=== PATIENT | female | born 1980 | race Caucasian/White ===

== ENCOUNTER → 2023-10-28 15:40 | Outpatient (REF) | payer OTHER, SELFPAY | LOC: WDC 15:40 | PROVIDERS: ATTENDING PHYSICIAN Obstetrics & Gynecology Gynecology; FAMILY PHYSICIAN Physician Assistant Medical | DX: Z12.31 Encounter for screening mammogram for malignant neoplasm of breast (principal) | CPT/HCPCS: 77063; 77067 ==

== ENCOUNTER 2023-11-02 07:28 | Emergency (ER) | payer OTHER, SELFPAY ==
[2023-11-02 07:29] VITALS: BP 127/82
[2023-11-02 08:05] VITALS: BMI 27.9
--- NOTE | 2023-11-02 08:32 | ED.GENMED ---
History of Present Illness
General
Chief Complaint: Abdominal Pain
Source: patient
Exam Limitations: none
Time Seen by Provider: 11/02/23 08:17
Nursing documentation reviewed up to this point in time: agreed with
Travel History
Have you had any contact with someone who has COVID-19?: No
Do you have any symptoms of coronavirus? Fever > 100 degrees, chills, cough, shortness of breath, sore throat, loss of taste or smell, muscle aches, or headache?: No
History of Present Illness
History of Present Illness:
43 yo female with hx ankylosing spondylitis, ovarian cyst, presents with LLQ abdominal pain. Has had pain intermittently 'shooting' across her lower back past week. Pain started wrapping around to left abdomen and now is not present in back but only
LLQ. Now 4/10 but gets to 9/10 with sweats at times.
Denies fever or chills. Denies shortness of breath or chest pain. No recollection of overuse or injury.
Patient states she intermittently gets 'bouts of inflammation and tightness,' generalized pains, 2 weeks ago she finished 7 days of a steroid taper for general back pain.
Past History
Past History
ED Past Medical History: Asthma and Other (Recurrent UTIs, costochondritis, Headaches,); Negative HTN, Hypercholesterolemia or NIDDM
ED Past Surgical History: None ( pericarditis); Negative Orthopedic
Social History
Tobacco: No 2nd hand smoke (as child)
Alcohol: None
Drug: None
Personal:
Living: with family
Employment: Employed
Family History
Family History: Hypertension
Review of Systems
Review of Systems
Allergies reviewed?: Yes
All Other Systems: ROS reviewed and negative except as documented in HPI and ROS
Constitutional: Denies fever or chills
Respiratory: Denies trouble breathing
Cardiac: Denies chest pain
ABD/GI: Reports abdominal pain; Denies nausea, vomiting, diarrhea, constipated, bloody stools, black stools or anorexia
: Reports no symptoms
Musculoskeletal: Reports back pain
Skin: Reports no symptoms
Neurological: Reports no symptoms
Phy Exam
Physical Exam
Physical Exam:
GENERAL: No acute distress. A&Ox3.
CONSTITUTIONAL: Afebrile.
EYES: Clear, conjunctivae normal
ENMT: moist mucus membranes, Pharynx nl
RESPIRATORY: Regular respirations, nonlabored, lungs clear.
CARDIOVASCULAR: Regular rate and rhythm, no murmurs, no rubs.
GI: Soft, mild tenderness mid to left abdomen , normal BS, no guarding. Flanks nontender to percussion no spinal bony tenderness
MUSCULOSKELETAL:. Patient out of bed and full range of motion of spine comfortably, no tenderness to palpation para thoracic repair lumbar soft tissues. Moves with ease. Well perfused.
SKIN: Warm, dry, pink
PSYCH: Normal mood and affect. Well kept, interactive and appropriate
NEUROLOGIC: Awake, alert and oriented. No focal neurological deficits
Course
Orders/Labs/Results
Orders:
Orders
11/02/23 08:31
0.9% Sodium Chloride 1000 ml [Nss] 1,000 ml IV BOLUS
Test Result ONCE
11/02/23 08:52
Complete Blood Count/With Diff Urgent
Comprehensive Metabolic Panel Urgent
HCG, Serum Qualitative Screen Urgent
Lipase Urgent
Urinalysis Reflex To Culture Urgent
Date Specimen was Collected: 11/02/23
Time Specimen was Collected: 08:50
11/02/23 10:49
CT Abd/Pel (IV only)-DH only Urgent
Comment:
Reason For Exam: LLQ pain
Abnormal Lab Results
11/02/23
08:52
MCH 34.9 H pg
(27.0-31.0)
RDW 11.2 L %
(11.5-14.5)
Sodium 134 L mmol/L
(135-145)
Creatinine 0.5 L mg/dL
(0.6-1.0)
ALT 38 H U/L
(0-35)
Total Protein 6.2 L g/dl
(6.3-8.2)
11/02/23 08:52
11/02/23 08:52
Vital Signs
Initial and Last Documented VS:
Initial Vital Signs
Temp Pulse Resp BP Pulse Ox
98 F 73 16 127/82 98
11/02/23 07:29 11/02/23 07:29 11/02/23 07:29 11/02/23 07:29 11/02/23 07:29
Last Documented Vital Signs
Temp Pulse Resp BP Pulse Ox
97.9 F 62 18 102/64 98
11/02/23 11:19 11/02/23 11:19 11/02/23 11:19 11/02/23 11:19 11/02/23 11:19
MDM/Problems Addressed
Differential Diagnosis Includes:
ovarian cyst, kidney stone, diverticulitis, exacerbation of chronic intermittent back pain
MDM/Problems Addressed:
43 yo female with hx ankylosing spondylitis, ovarian cyst, presents with LLQ abdominal pain. Has had pain intermittently 'shooting' across her lower back past week. Pain started wrapping around to left abdomen and now is not present in back but only
LLQ. Now 4/10 but gets to 9/10 with sweats at times.
Denies fever or chills. Denies shortness of breath or chest pain. No recollection of overuse or injury.
Patient states she intermittently gets 'bouts of inflammation and tightness,' generalized pains, 2 weeks ago she finished 7 days of a steroid taper for general back pain.
11:30 AM
CBC normal
CMP normal hCG negative
Lipase normal
UA negative
Pt kindly declined when pain med offered
12:17 PM
CAT scan abdomen pelvis radiology report reviewed:
IMPRESSION:
No dilated bowel loops. No apparent bowel wall thickening. Mild colonic fecal burden. Scattered fluid and a few small/short air-fluid levels associated with the small bowel, in keeping with history of diarrhea.
Normal appendix.
Nonspecific trace free fluid in the pelvis, likely physiologic. 2 cm right ovarian follicle.
Nothing in today's workup to explain her abdominal pain.
Pt satisfied with work up
Ambulated out with normal gait upon discharge
*Critical Care Note
Total Time (30-74mins, 75-104mins- exclusive of procedures): Not Applicable
ED Attending Note
-
Portions of this chart may have been created with voice recognition software.� Occasional wrong word or��sound alike� substitutions may have occurred due to the inherent limitations of voice recognition software.
Discharge Plan
Departure
Patient Disposition: Home (Routine Discharge)
Date of Disposition: 11/02/23
Time of Disposition: 12:18
Patient with high blood pressure during this ER visit?: No
Condition: Good
Discharge Problem:
Abdominal pain, Low back pain
Instructions: Low Back Pain (DC), Abdominal Pain
Prescriptions:
No Action
azelastine 1 SPRAY aerosol,spray
1 spray intranasal BID
fluticasone propionate 1 SPRAY spray,suspension
1 spray intranasal DAILY
bupropion HCl 150 MG tablet extended release 24 hr
75 mg PO DAILY
loratadine 10 MG tablet
10 mg PO DAILY
sucralfate 1 GRAM tablet
1 g PO ACHS Qty: 20 0RF
Referrals:
Courtney Campbell PA [Family Provider] -
Activity Restrictions/Additional Instructions:
As we discussed, nothing in your workup here today shows anything worrisome, specifically no indication of the cause of your back or abdominal pain.
Ibuprofen or Tylenol as needed for pain
Follow-up with your family doctor in one weel if your symptoms are not much better.
Interventions
Interventions:
*Risk Screen - Suicide Last Done: 11/02/23 07:29
*General Assessment Last Done: 11/02/23 07:29
*Neglect/Abuse Screening Last Done: 11/02/23 07:29
ED- Fall Risk Assessment Last Done: 11/02/23 08:05
*ED COVID-19 Vaccine History Last Done: 11/02/23 08:05
*Nursing Disposition Last Done: 11/02/23 12:28
NE-Pwuiyd-Ifnshtbolf Assessment Last Done: 11/02/23 08:51
Discharge Date and Time
Discharge Date/Time: 11/02/23 12:28
Print Language: TURKMEN
[2023-11-02] MEDS: NSS 1000 IV (08:59)
[2023-11-02 09:17] LABS: Urine Albumin Negative (Neg - Trace); Urine Bilirubin Negative (Negative); Urine Character Clear (Clear); Urine Color Yellow; Urine Glucose Negative (Negative); Urine Ketone Negative (Negative); Urine Leukocyte Negative (Negative); Urine Nitrite Negative (Negative); Urine Occult Blood Negative (Negative); Urine Specific Gravity 1.015 (<1.030); Urine Urobilinogen Negative (Neg - 1+)
[2023-11-02 09:23] LABS: % Basophils 0.4 % (0-2); % Eosinophils 1.8 % (0-6); % Immature Granulocytes 0.4 % (0-0.5); % Lymphocytes 24.6 % (20.5-51.1); % Monocytes 7.2 % (1.7-9.3); % Neutrophils 65.6 % (42.2-75.2); Absolute Eosinophils 0.1 10^3/uL (0-0.7); Absolute Lymphocytes 1.3 10^3/uL (1.2-3.4); Absolute Monocytes 0.4 10^3/uL (0.1-0.6); Absolute Neutrophils 3.6 10^3/uL (1.4-6.5); Hematocrit 42.8 % (37.0-47.0); Hemoglobin 15.3 g/dL (12.0-16.0); Mean Corp Hgb Conc. 35.7 g/dL (33.0-37.0); Mean Corpuscular Hgb 34.9 pg (27.0-31.0); Mean Corpuscular Volume 97.5 fL (81.0-99.0); Mean Platelet Volume 9.1 fL (7.4-10.4); Nucleated Red Blood Cells % 0 %; Platelet Count 255 10^3/uL (130-400); Red Blood Cell Count 4.39 10^6/uL (4.20-5.40); Red Cell Dist. Width 11.2 % (11.5-14.5); White Blood Cell Count 5.4 10^3/uL (4.8-10.8)
[2023-11-02 09:28] LABS: ALT (SGPT) 38 U/L (0-35); AST (SGOT) 31 U/L (14-36); Albumin 3.8 g/dl (3.5-5.0); Alkaline Phosphatase 97 U/L (38-126); Blood Urea Nitrogen 14 mg/dl (7-17); Calcium 8.6 mg/dl (8.4-10.2); Carbon Dioxide 24 mmol/L (22-30); Chloride 107 mmol/L (98-107); Estimated Creatinine Clearance 121 ml/min; Glucose 93 mg/dl (70-99); Lipase 75 U/L (23-300); Potassium 3.8 mmol/L (3.5-5.1); Sodium 134 mmol/L (135-145); Total Bilirubin 0.8 mg/dl (0.2-1.3); Total Protein 6.2 g/dl (6.3-8.2); eGFR > 60.00
[2023-11-02 09:30] LABS: HCG, Serum Qualitative Screen Negative
[2023-11-02 11:19] VITALS: BP 102/64
== END 2023-11-02 12:28 | disposition home or self-care (01) ==
LOC: EMR 07:28
PROVIDERS: Registered Nurse; EMERGENCY PHYSICIAN Emergency Medicine; FAMILY PHYSICIAN Physician Assistant Medical
DX: R10.32 Left lower quadrant pain (principal); M54.50 Low back pain, unspecified; J45.909 Unspecified asthma, uncomplicated; M45.9 Ankylosing spondylitis of unspecified sites in spine; Z82.49 Family history of ischemic heart disease and other diseases of the circulatory system; Z87.440 Personal history of urinary (tract) infections
CPT/HCPCS: 99284; 74177; 80053; 81003; 83690; 84703; 85025; Q9967

== ENCOUNTER → 2023-12-17 07:48 | Outpatient (REF) | payer OTHER, SELFPAY | LOC: WDC 07:48 | PROVIDERS: ATTENDING PHYSICIAN Obstetrics & Gynecology Gynecology; FAMILY PHYSICIAN Physician Assistant Medical | DX: R92.8 Other abnormal and inconclusive findings on diagnostic imaging of breast (principal) | CPT/HCPCS: 76642 ==

== ENCOUNTER → 2024-03-10 11:33 | Outpatient (REF) | payer OTHER, SELFPAY | LOC: RAD 11:33 | PROVIDERS: ATTENDING PHYSICIAN Nurse Practitioner Adult Health; FAMILY PHYSICIAN Physician Assistant Medical | DX: R10.2 Pelvic and perineal pain (principal) | CPT/HCPCS: 76830; 76856 ==

== ENCOUNTER → 2024-03-16 14:04 | Outpatient (REF) | payer OTHER, SELFPAY | LOC: WDC 14:04 | PROVIDERS: ATTENDING PHYSICIAN Obstetrics & Gynecology Gynecology; FAMILY PHYSICIAN Physician Assistant Medical | DX: R92.8 Other abnormal and inconclusive findings on diagnostic imaging of breast (principal) | CPT/HCPCS: 76642 ==

== ENCOUNTER → 2024-07-30 11:31 | Outpatient (REF) | payer OTHER, SELFPAY | LOC: RAD 11:31 | PROVIDERS: ATTENDING PHYSICIAN Otolaryngology | DX: J32.0 Chronic maxillary sinusitis (principal) | CPT/HCPCS: 70210 ==

== ENCOUNTER 2024-07-31 13:40 | Emergency (ER) | payer OTHER, SELFPAY ==
[2024-07-31 13:47] VITALS: BP 108/75
[2024-07-31 14:19] LABS: % Basophils 0.3 % (0-2); % Eosinophils 0.5 % (0-6); % Immature Granulocytes 0.3 % (0-0.5); % Lymphocytes 21.2 % (20.5-51.1); % Neutrophils 72.7 % (42.2-75.2); Absolute Lymphocytes 1.3 10^3/uL (1.2-3.4); Absolute Monocytes 0.3 10^3/uL (0.1-0.6); Absolute Neutrophils 4.5 10^3/uL (1.4-6.5); Hematocrit 40.9 % (37.0-47.0); Hemoglobin 15.3 g/dL (12.0-16.0); Mean Corp Hgb Conc. 37.4 g/dL (33.0-37.0); Mean Corpuscular Hgb 35.2 pg (27.0-31.0); Mean Platelet Volume 8.6 fL (7.4-10.4); Nucleated Red Blood Cells % 0 %; Platelet Count 375 10^3/uL (130-400); Red Blood Cell Count 4.35 10^6/uL (4.20-5.40); Red Cell Dist. Width 10.9 % (11.5-14.5); White Blood Cell Count 6.1 10^3/uL (4.8-10.8)
[2024-07-31 14:28] LABS: HCG, Serum Qualitative Screen Negative
[2024-07-31 14:37] LABS: ALT (SGPT) 19 U/L (0-35); AST (SGOT) 25 U/L (14-36); Albumin 4.4 g/dl (3.5-5.0); Alkaline Phosphatase 46 U/L (38-126); Blood Urea Nitrogen 13 mg/dl (7-17); Calcium 9.5 mg/dl (8.4-10.2); Carbon Dioxide 25 mmol/L (22-30); Chloride 103 mmol/L (98-107); Glucose 118 mg/dl (70-99); Potassium 4.2 mmol/L (3.5-5.1); Sodium 135 mmol/L (135-145); Total Protein 6.7 g/dl (6.3-8.2); eGFR > 60.00
--- NOTE | 2024-07-31 15:15 | ED.GENMED ---
History of Present Illness
General
Chief Complaint: Eye Problems
Source: patient
Exam Limitations: none
Time Seen by Provider: 07/31/24 15:13
Nursing documentation reviewed up to this point in time: agreed with
History of Present Illness
History of Present Illness:
44 yo female with chronic sinusitis, Saw ENT, states her sinuses are feeling a little better on day 8 of Augmentin. had sinus xray 07/30 at request of ENT for chronic maxillary sinusitis and results were as follows: IMPRESSION:
The paranasal sinuses are clear.
There is a 3 cm oval asymmetric density in the left orbit which, if clinically indicated, could be further evaluated with CT
Pt here now stating ENT Dr. Barlow called her today and recommended she come here for CT scan to r/o abscess L orbit
Did develop a little crusting and blurry vision in left eye 5 days ago and was put on Gentamicin drops which she used for 3 days with improvement
Past History
Past History
ED Past Medical History: Asthma and Other (Recurrent UTIs, costochondritis, Headaches,)
ED Past Surgical History: None ( pericarditis); Negative Orthopedic
Social History
Tobacco: No 2nd hand smoke (as child)
Alcohol: None
Drug: None
Personal:
Living: with family
Employment: Employed
Family History
Family History: Hypertension
Review of Systems
Review of Systems
Allergies reviewed?: Yes
All Other Systems: ROS reviewed and negative except as documented in HPI and ROS
Constitutional: Denies fever
EENT: Reports other (chronic sinusitis, sinus pressure); Denies sore throat or runny nose
Respiratory: Denies cough or trouble breathing
ABD/GI: Denies abdominal pain, nausea or vomiting
Musculoskeletal: Denies neck pain
Skin: Reports no symptoms
Neurological: Reports no symptoms
Phy Exam
Physical Exam
Physical Exam:
GENERAL: No acute distress. A&Ox3.
CONSTITUTIONAL: Afebrile.
EYES: clear, conjunctivae normal, EOMs intact, sharp optic disc bilaterally. Sharp vessel borders visual acuity noted.
ENMT: moist mucus membranes, Pharynx nl, TMs normal
RESPIRATORY: Regular respirations, nonlabored, lungs clear.
CARDIOVASCULAR: Regular rate and rhythm, no murmurs, no rubs.
GI: Soft, nontender
MUSCULOSKELETAL: Moves with ease. Well perfused.
SKIN: Warm, dry, pink
PSYCH: Normal mood and affect. Well kept, interactive and appropriate
NEUROLOGIC: Awake, alert and oriented. No focal neurological deficits
Eye Exam
Eye Exam: PERRL, EOMI, cornea clear, conjunctiva normal, disc sharp and globe normal
Able to obtain acuity?: Yes
Right 20/: 40
Left 20/: 50
Both 20/: 30
Refraction?: No
Course
Orders/Labs/Results
Orders:
Orders
07/31/24 13:54
Test Result ONCE
07/31/24 14:08
Complete Blood Count/With Diff Urgent
Comprehensive Metabolic Panel Urgent
HCG, Serum Qualitative Screen Urgent
07/31/24 15:14
CT Orbits With Iv Contrast Urgent
Comment:
Reason For Exam: xray showed asymmet density L orbit
07/31/24 15:24
Visual Acuity- Treatment ONCE
Abnormal Lab Results
07/31/24
14:08
MCH 35.2 H pg
(27.0-31.0)
MCHC 37.4 H g/dL
(33.0-37.0)
RDW 10.9 L %
(11.5-14.5)
Glucose 118 H mg/dl
(70-99)
07/31/24 14:08
07/31/24 14:08
Vital Signs
Initial and Last Documented VS:
Initial Vital Signs
Temp Pulse Resp BP Pulse Ox
97.9 F 87 18 108/75 99
07/31/24 13:47 07/31/24 13:47 07/31/24 13:47 07/31/24 13:47 07/31/24 13:47
Last Documented Vital Signs
Temp Pulse Resp BP Pulse Ox
98.1 F 76 16 110/68 100
07/31/24 16:37 07/31/24 16:37 07/31/24 16:37 07/31/24 16:37 07/31/24 16:37
MDM/Problems Addressed
MDM/Problems Addressed:
44 yo female with chronic sinusitis, Saw ENT, states her sinuses are feeling a little better on day 8 of Augmentin. had sinus xray 07/30 at request of ENT for chronic maxillary sinusitis and results were as follows: IMPRESSION:
The paranasal sinuses are clear.
There is a 3 cm oval asymmetric density in the left orbit which, if clinically indicated, could be further evaluated with CT
Pt here now stating ENT Dr. Barlow called her today and recommended she come here for CT scan to r/o abscess L orbit
Did develop a little crusting and blurry vision in left eye 5 days ago and was put on Gentamicin drops which she used for 3 days with improvement
Visual acuity noted.
CBC, CMP normal
5:[address] orbits radiology report read: IMPRESSION:
There is no evidence of intraorbital lesion or post septal infectious process..
Pt informed.
Stable for discharge
*Critical Care Note
Total Time (30-74mins, 75-104mins- exclusive of procedures): Not Applicable
ED Attending Note
-
Portions of this chart may have been created with voice recognition software.� Occasional wrong word or��sound alike� substitutions may have occurred due to the inherent limitations of voice recognition software.
Discharge Plan
Departure
Patient Disposition: Home (Routine Discharge)
Date of Disposition: 07/31/24
Time of Disposition: 17:29
Patient with high blood pressure during this ER visit?: No
Condition: Good
Discharge Problem:
Sinusitis
Instructions: Sinusitis in adults - ED discharge instructions
Prescriptions:
No Action
azelastine 1 SPRAY aerosol,spray
1 spray intranasal BID
fluticasone propionate 1 SPRAY spray,suspension
1 spray intranasal DAILY
bupropion HCl 150 MG tablet extended release 24 hr
75 mg PO DAILY
loratadine 10 MG tablet
10 mg PO DAILY
sucralfate 1 GRAM tablet
1 g PO ACHS Qty: 20 0RF
Referrals:
Courtney Campbell PA [Family Provider] -
Oma Barlow MD [Active] - As needed
Activity Restrictions/Additional Instructions:
As we discussed, your CAT scan shows nothing worrisome.
The shadow seen on the x-ray most likely was artifact
Continue your Augmentin as prescribed and follow-up with ENT as needed
Interventions
Interventions:
*Risk Screen - Suicide Last Done: 07/31/24 13:47
*General Assessment Last Done: 07/31/24 13:47
*Neglect/Abuse Screening Last Done: 07/31/24 13:47
*Nursing Disposition Last Done: 07/31/24 17:48
Discharge Date and Time
Discharge Date/Time: 07/31/24 17:50
Print Language: SETSWANA
[2024-07-31 16:37] VITALS: BP 110/68
== END 2024-07-31 17:50 | disposition home or self-care (01) ==
LOC: EMR 13:40
PROVIDERS: Emergency Medicine; EMERGENCY PHYSICIAN Emergency Medicine; FAMILY PHYSICIAN Physician Assistant Medical
DX: J01.90 Acute sinusitis, unspecified (principal); H53.8 Other visual disturbances; J45.909 Unspecified asthma, uncomplicated; Z87.440 Personal history of urinary (tract) infections
CPT/HCPCS: 99284; 70481; 80053; 84703; 85025; Q9967

== ENCOUNTER → 2024-11-02 14:10 | Outpatient (REF) | payer OTHER, SELFPAY | LOC: WDC 14:10 | PROVIDERS: ATTENDING PHYSICIAN Obstetrics & Gynecology Gynecology | DX: Z12.31 Encounter for screening mammogram for malignant neoplasm of breast (principal) | CPT/HCPCS: 77063; 77067 ==

== ENCOUNTER → 2024-11-23 10:42 | Outpatient (REF) | payer OTHER, SELFPAY | LOC: WDC 10:42 | PROVIDERS: ATTENDING PHYSICIAN Obstetrics & Gynecology Gynecology | DX: R92.8 Other abnormal and inconclusive findings on diagnostic imaging of breast (principal) | CPT/HCPCS: 76642 ==

== ENCOUNTER → 2025-02-04 08:10 | Outpatient (REF) | payer OTHER, SELFPAY | LOC: HWRAD 08:10 | PROVIDERS: ATTENDING PHYSICIAN Internal Medicine; FAMILY PHYSICIAN Physician Assistant Medical | DX: R53.82 Chronic fatigue, unspecified (principal); R16.2 Hepatomegaly with splenomegaly, not elsewhere classified | CPT/HCPCS: 76700 ==

== ENCOUNTER → 2025-03-01 16:46 | Outpatient (REF) | payer OTHER, SELFPAY | LOC: RAD 16:46 | PROVIDERS: ATTENDING PHYSICIAN Internal Medicine Hematology & Oncology; FAMILY PHYSICIAN Physician Assistant Medical | DX: D75.89 Other specified diseases of blood and blood-forming organs (principal) | CPT/HCPCS: 71250 ==

== ENCOUNTER 2025-03-18 19:26 | Emergency (ER) | payer OTHER, SELFPAY ==
[2025-03-18 19:29] VITALS: BP 121/81
[2025-03-18 19:40] LABS: Hematocrit 40.4 % (37.0-47.0); Hemoglobin 14.9 g/dL (12.0-16.0); Mean Corp Hgb Conc. 36.9 g/dL (33.0-37.0); Mean Corpuscular Volume 96.4 fL (81.0-99.0); Nucleated Red Blood Cells % 0 %; Platelet Count 344 10^3/uL (130-400); Red Cell Dist. Width 10.9 % (11.5-14.5)
[2025-03-18 20:02] LABS: ALT (SGPT) 17 U/L (0-35); AST (SGOT) 21 U/L (14-36); Albumin 4.7 g/dl (3.5-5.0); Alkaline Phosphatase 54 U/L (38-126); Blood Urea Nitrogen 19 mg/dl (7-17); Calcium 9.4 mg/dl (8.4-10.2); Carbon Dioxide 26 mmol/L (22-30); Chloride 104 mmol/L (98-107); Glucose 98 mg/dl (70-99); Lipase 72 U/L (23-300); Potassium 4.1 mmol/L (3.5-5.1); Sodium 137 mmol/L (135-145); Total Protein 7.0 g/dl (6.3-8.2); eGFR > 60.00
[2025-03-19 00:08] VITALS: BMI 26.0
[2025-03-19 00:10] VITALS: BP 114/71
--- NOTE | 2025-03-19 01:32 | ED.GENMED ---
History of Present Illness
<Laura Escudero PA-C - Last Filed: 03/19/25 06:40>
General
Chief Complaint: Abdominal Symptoms
Source: patient
Exam Limitations: none
Time Seen by Provider: 03/19/25 00:13
History of Present Illness
History of Present Illness:
see MDM
Past History
<Otis Young DO - Last Filed: >
Past History
ED Past Medical History: Asthma and Other (Recurrent UTIs, costochondritis, Headaches,)
ED Past Surgical History: None ( pericarditis); Negative Orthopedic
Social History
Tobacco: No 2nd hand smoke (as child)
Alcohol: None
Drug: None
Personal:
Living: with family
Employment: Employed
Family History
Family History: Hypertension
Phy Exam
<Laura Escudero PA-C - Last Filed: 03/19/25 06:40>
Physical Exam
Physical Exam:
GENERAL: Alert , in no apparent distress
EYE: pupils equal and reactive
NECK: Supple
ENT: o/p clr, mmm.
CARDIAC: Regular rate and rhythm .
LUNGS: Clear breath sounds bilaterally, no acute respiratory distress, no wheezes/rales/rhonchi
ABDOMEN: Soft, without focal tenderness, no r/g, no cvat, normal bowel sounds
NO SIGNIFICANT TENDERNESS, BUT MILD SKIN SENSITIVITY RUQ, NO RASH, NO ERYTHEMA
NEUROLOGICAL: Alert and oriented, no focal neuro deficits
SKIN: Warm and dry, skin intact.
MUSCULOSKELETAL: No edema, well perfused. neg lebron's sign
PSYCH: Normal and appropriate interaction.
Course
<Laura Escudero PA-C - Last Filed: 03/19/25 06:40>
Orders/Labs/Results
Orders:
Orders
03/18/25 19:34
Complete Blood Count/With Diff Urgent
Comprehensive Metabolic Panel Urgent
Lipase Urgent
03/19/25 01:27
US Abdomen Complete/Upper Urgent
Comment:
Reason For Exam: ruq pain
Abnormal Lab Results
03/18/25
19:34
RBC 4.19 L 10^6/uL
(4.20-5.40)
MCH 35.6 H pg
(27.0-31.0)
RDW 10.9 L %
(11.5-14.5)
BUN 19 H mg/dl
(7-17)
03/18/25 19:34
03/18/25 19:34
Vital Signs
Initial and Last Documented VS:
Initial Vital Signs
Temp Pulse Resp BP Pulse Ox
36.9 C 76 16 121/81 98
03/18/25 19:29 03/18/25 19:29 03/18/25 19:29 03/18/25 19:29 03/18/25 19:29
Last Documented Vital Signs
Temp Pulse Resp BP Pulse Ox
36.9 C 76 22 117/74 98
03/18/25 19:29 03/19/25 00:55 03/19/25 00:55 03/19/25 03:17 03/19/25 03:18
<Otis Young, DO - Last Filed: >
Orders/Labs/Results
Orders:
Orders
03/18/25 19:34
Complete Blood Count/With Diff Urgent
Comprehensive Metabolic Panel Urgent
Lipase Urgent
03/19/25 01:27
US Abdomen Complete/Upper Urgent
Comment:
Reason For Exam: ruq pain
Abnormal Lab Results
03/18/25
19:34
RBC 4.19 L 10^6/uL
(4.20-5.40)
MCH 35.6 H pg
(27.0-31.0)
RDW 10.9 L %
(11.5-14.5)
BUN 19 H mg/dl
(7-17)
03/18/25 19:34
03/18/25 19:34
Vital Signs
Initial and Last Documented VS:
Initial Vital Signs
Temp Pulse Resp BP Pulse Ox
36.9 C 76 16 121/81 98
03/18/25 19:29 03/18/25 19:29 03/18/25 19:29 03/18/25 19:29 03/18/25 19:29
Last Documented Vital Signs
Temp Pulse Resp BP Pulse Ox
36.9 C 76 22 117/74 98
03/18/25 19:29 03/19/25 00:55 03/19/25 00:55 03/19/25 03:17 03/19/25 03:18
<Laura Escudero PA-C - Last Filed: 03/19/25 06:40>
MDM/Problems Addressed
Differential Diagnosis Includes:
see MDM
MDM/Problems Addressed:
Note:
CHIEF COMPLAINT(S)
Abdominal pain with a sensation of burning and tingling.
HISTORY OF PRESENT ILLNESS
The patient is a 44-year-old female presenting with upper abdominal pain, characterized as sharp, burning, and with a tingling sensation. The symptoms began actually over 1 week ago but more of a tingling sensation, but today got worse, as a burning
sensation to the skin; and are persistent, regardless of movement, intake, or respiration. The pain wraps around the upper abdomen and intensifies with touch. The patient reports that this discomfort is distinct from previous episodes of
costochondritis, which usually involve bilateral chest wall inflammation. She also has a history of an enlarged liver diagnosed a few years ago, prompting her visit to rule out any hepatic issues. The patient denies nausea, vomiting, or rash but
reports experiencing chills intermittently for the past week. Despite the abdominal pain, she maintains a normal appetite and denies any recent weight loss. There is no history of shingles, but she had chickenpox as a child. The patient has
previously experienced similar tingling sensations which have yet to escalate into a rash, associated with nerve pain in her hand, and has considered the possibility of shingles. She has been prescribed prednisone previously, which has been
effective for joint inflammation assumed to be linked to ankylosing spondylitis, but not recently used. Gabapentin was mentioned as a possible treatment for the nerve pain. which she has hd before
PAST MEDICAL AND SURIGICAL HISTORY
History of costochondritis.
History of mildly enlarged liver diagnosed via ultrasound.
SOCIAL HISTORY
The patient denies smoking and alcohol consumption.
PHYSICAL EXAM
- General: Patient appears comfortable but in mild distress due to abdominal discomfort.
- Abdomen: Tenderness noted in the upper abdominal region with reported tingling sensation; no rash observed.
Nursing notes reviewed and vital signs reviewed.
PLAN
- Order ultrasound of the abdomen to assess for gallstones or liver enlargement.
- Consider initiation of Gabapentin for management of nerve-related pain if indicated by ultrasound results.
DIFFERENTIAL DIAGNOSIS
The Differential Diagnosis includes, in no particular order and is not limited to:
1. Gallbladder disease
2. Hepatic enlargement or liver pathology
3. Costochondritis
4. Shingles (Herpes Zoster)
5. Nerve impingement or neuropathy
6. Gastroesophageal reflux disease (GERD)
7. Peptic ulcer disease
8. Pancreatitis
9. Myofascial pain syndrome
10. Rib fracture or thoracic spine pathology
<Otis Young, - Last Filed: >
*Pulse Oximetry
SaO2: 98
Oxygen Mode of Delivery: Room air
ED Attending Note
<Otis Young, - Last Filed: >
-
Portions of this chart may have been created with voice recognition software.� Occasional wrong word or��sound alike� substitutions may have occurred due to the inherent limitations of voice recognition software.
Discharge Plan
Departure
Patient Disposition: Home (Routine Discharge)
Date of Disposition: 03/19/25
Time of Disposition: 03:10
Patient with high blood pressure during this ER visit?: No
Condition: Fair
Covid-19: Not Applicable
Discharge Problem:
Abdominal pain
Instructions: Abdominal Pain
Prescriptions:
No Action
azelastine 1 SPRAY aerosol,spray
1 spray intranasal BID
fluticasone propionate 1 SPRAY spray,suspension
1 spray intranasal DAILY
bupropion HCl 150 MG tablet extended release 24 hr
75 mg PO DAILY
loratadine 10 MG tablet
10 mg PO DAILY
sucralfate 1 GRAM tablet
1 g PO ACHS Qty: 20 0RF
Referrals:
Courtney Campbell PA [Family Provider, Family Practice] - Follow up in 2-3 days
Activity Restrictions/Additional Instructions:
WE ARE NOT SURE THE CAUSE OF YOUR PAIN
YOU HAD NORMAL LIVER ENZYMES
YOU HAVE A MILDLY FATTY LIVER BUT IT IS ESSENTIALLY THE SAME SIZE BEFORE, 16.7 CM
IT COULD BE NERVE PAIN
YOU CAN CONTINUE THE STEROID PACK AND ADD GABAPENTIN
WATCH FOR A RASH, IF SO, THIS COULD BE SHINGLES
RETURN FO RANY CONCERNS.
Interventions
Interventions:
*Risk Screen - Suicide Last Done: 03/18/25 19:27
*General Assessment Last Done: 03/18/25 19:29
*Neglect/Abuse Screening Last Done: 03/18/25 19:29
*ED- Fall Risk Assessment Last Done: 03/18/25 19:29
*ED COVID-19 Vaccine History Last Done: 03/18/25 19:29
*Nursing Disposition Last Done: 03/19/25 03:25
LP-Teamoo-Qrqkbnairr Assessment Last Done: 03/19/25 00:11
Discharge Date and Time
Discharge Date/Time: 03/19/25 03:25
Print Language: BELARUSIAN
[2025-03-19 03:17] VITALS: BP 117/74
== END 2025-03-19 03:25 | disposition home or self-care (01) ==
LOC: EMR 19:26
PROVIDERS: Emergency Medicine; EMERGENCY PHYSICIAN Student in an Organized Health Care Education/Training Program; FAMILY PHYSICIAN Physician Assistant Medical
DX: R10.10 Upper abdominal pain, unspecified (principal); R20.2 Paresthesia of skin; J45.909 Unspecified asthma, uncomplicated
CPT/HCPCS: 99284; 76700; 80053; 83690; 85025

== ENCOUNTER → 2025-07-02 14:41 | Outpatient (REF) | payer OTHER, SELFPAY | LOC: WDC 14:41 | PROVIDERS: ATTENDING PHYSICIAN Obstetrics & Gynecology Gynecology; FAMILY PHYSICIAN Physician Assistant Medical | DX: R92.30 Dense breasts, unspecified (principal) | CPT/HCPCS: 76641 ==

== ENCOUNTER → 2025-07-06 10:13 | Outpatient (REF) | payer OTHER, SELFPAY | LOC: RAD 10:13 | PROVIDERS: ATTENDING PHYSICIAN Internal Medicine | DX: M45.9 Ankylosing spondylitis of unspecified sites in spine (principal) | CPT/HCPCS: 72052; 72070; 72100 ==